=== PATIENT | male | born 1970 | race African-American/Black ===

== ENCOUNTER 2018-04-03 18:29 | Emergency (ER) | payer MEDICAID, OTHER ==
[2018-04-03 19:57] VITALS: BP 138/92
== END 2018-04-03 19:55 | disposition left against medical advice (07) ==
LOC: ED 18:29
DX: M25.512 Pain in left shoulder (principal); R53.1 Weakness; Z53.21 Procedure and treatment not carried out due to patient leaving prior to being seen by health care provider
CPT/HCPCS: 93005; 99281

== ENCOUNTER 2018-09-21 23:22 | Emergency (ER) | payer MEDICAID, OTHER ==
[2018-09-22] MEDS ORDERED: NS 0.9% 1000 ML* 1,000 ML IV ONE (01:02)
[2018-09-22 01:47] LABS: ABS Basophils 0.1 10^3/ul (0-0.2); ABS Eosinophils 0.1 10^3/ul (0-0.6); ABS Lymphocytes 1.9 10^3/ul (1.0-4.8); ABS Monocytes 0.4 10^3/ul (0-0.8); ABS Neutrophils 4.8 10^3/ul (1.5-7.7); ABS Nucleated RBC 0 10^3/ul; Eosinophil % 1.1 %; Hematocrit 43 % (42-52); Hemoglobin 14.5 g/dl (14.0-18.0); Lymphocyte % 25.8 %; Mean Corpuscular HGB Conc 33 g/dl (31-36); Mean Corpuscular Hemoglobin 26 pg (27-31); Mean Corpuscular Volume 78 fL (80-94); Mean Platelet Volume 9.5 fL (7.4-10.4); Nucleated Red Blood Cells % 0.1; Platelet Count 217 10^3/ul (150-450); Red Blood Count 5.53 10^6/ul (4.00-5.40); Red Cell Distribution Width 14 % (10.5-15); White Blood Count 7.2 10^3/ul (3.5-10.8)
[2018-09-22 02:05] LABS: Albumin 4.5 g/dL (3.2-5.2); Albumin/Globulin Ratio 1.6 (1-3); BUN/Creatinine Ratio 13.1 (8-20); C Reactive Protein 6.44 mg/L (<8.01); Calcium 9.1 mg/dL (8.6-10.3); Globulin 2.8 g/dL (2-4); Potassium 3.5 mmol/L (3.5-5.0); Total Bilirubin 0.6 mg/dL (0.2-1.0); Total Protein 7.3 g/dL (6.4-8.9)
[2018-09-22 02:49] LABS: TSH (Thyroid Stimulating Horm) 1.41 mcIU/mL (0.34-5.60)
--- NOTE | 2018-09-22 03:15 | ED ---
Hypertension - HPI Summary HPI Summary: Patient complains of elevated blood pressure up to 165/105, not feeling well starting this evening while watching TV. Associated symptoms are shortness of breath, nausea, abdominal churning, left side neck pain. All symptoms have resolved by time of exam, but patient states he is concerned. Patient has history of hypertension, with history of noncompliance. States history of recent stress test and echo one week ago with gathering machine setter in [facility]. States stress test was negative, echo was unusual by gathering machine setter for following up with scheduled CT. Patient states history of multiple evaluations for chest pain over the years. Cardiac catheter in 2004 was negative. Denies fever, cough, sore throat, active CP, active SOB, active N/V/D, abdominal pain, change in urine, change in BM. Medical history is HTN, chronic back pain, HDL. Negative smoker, denies EtOH, recreational drug use. - History of Current Complaint Chief Complaint: EDHypertension Stated Complaint: HIGH BLOOD PRESSURE Time Seen by Provider: 09/22/18 00:45 Hx Obtained From: Patient Onset/Duration: Started Hours Ago Timing: Intermittent Aggravating Factor(s): Nothing Alleviating Factor(s): Nothing Associated Signs & Symptoms: Chest Pain, SOB - Risk Factors Cardiac Risk Factors: Hypertension - Allergies/Home Medications Allergies/Adverse Reactions: Allergies Allergy/AdvReac Type Severity Reaction Status Date / Time No Known Allergies Allergy Verified 09/22/18 02:01 PMH/Surg Hx/FS Hx/Imm Hx Endocrine/Hematology History: Denies: Hx Anticoagulant Therapy Cardiovascular History: Reports: Other Cardiovascular Problems/Disorders - PALPATATIONS Denies: Hx Auto Implanted Cardiovert Defib History: Denies: Hx Dialysis Sensory History: Denies: Hx Eye Prosthesis EENT History: Denies: Hx Deafness Neurological History: Denies: Hx Developmental Delay Psychiatric History: Denies: Hx Autism - Surgical History Surgery Procedure, Year, and Place: CARDIAC CATH, [place], [place] Infectious Disease History: No Infectious Disease History: Denies: Traveled Outside the [place] in Last 30 Days - Family History Known Family History: Positive: Unknown Negative: Cardiac Disease - Social History Alcohol Use: Rare Substance Use Type: Reports: None Hx Tobacco Use: No Smoking Status (MU): Never Smoked Tobacco Review of Systems Constitutional: Negative Eyes: Negative ENT: Negative Positive: Chest Pain Positive: Shortness Of Breath Gastrointestinal: Negative Genitourinary: Negative Musculoskeletal: Negative Skin: Negative Neurological: Negative Psychological: Normal All Other Systems Reviewed And Are Negative: Yes Physical Exam - Summary Physical Exam Summary: Physical exam unremarkable. Chest pain not reproducible. Neck pain reproducible. Triage Information Reviewed: Yes Vital Signs On Initial Exam: Initial Vitals Temp Pulse Resp BP Pulse Ox 97.6 F 75 20 155/104 97 09/21/18 23:24 09/21/18 23:24 09/21/18 23:24 09/21/18 23:24 09/21/18 23:24 Vital Signs Reviewed: Yes Appearance: Positive: Well-Appearing Skin: Positive: Warm Head/Face: Positive: Normal Head/Face Inspection Eyes: Positive: Normal ENT: Positive: Normal ENT inspection Neck: Positive: Supple Respiratory/Lung Sounds: Positive: Clear to Auscultation Cardiovascular: Positive: Normal Abdomen Description: Positive: Nontender Musculoskeletal: Positive: Normal Neurological: Positive: Normal Psychiatric: Positive: Normal AVPU Assessment: Alert - [place] Coma Scale Best Eye Response: 4 - Spontaneous Best Motor Response: 6 - Obeys Commands Best Verbal Response: 5 - Oriented Coma Scale Total: 15 Diagnostics - Vital Signs Vital Signs Temp Pulse Resp BP Pulse Ox 09/22/18 03:00 68 99 09/22/18 02:41 71 132/85 99 09/22/18 02:11 71 134/85 98 09/22/18 02:00 68 98 09/22/18 01:41 72 138/92 98 09/22/18 01:40 70 98 09/21/18 23:24 97.6 F 75 20 155/104 97 - Laboratory Lab Results: Lab Results 09/22/18 09/22/18 Range/Units 01:35 01:35 WBC 7.2 (3.5-10.8) 10^3/ul RBC 5.53 H (4.00-5.40) 10^6/ul Hgb 14.5 (14.0-18.0) g/dl Hct 43 (42-52) % MCV 78 L (80-94) fL MCH 26 L (27-31) pg MCHC 33 (31-36) g/dl RDW 14 (10.5-15) % Plt Count 217 (150-450) 10^3/ul MPV 9.5 (7.4-10.4) fL Neut % (Auto) 66.5 % Lymph % (Auto) 25.8 % [place] % (Auto) 5.5 % Eos % (Auto) 1.1 % Baso % (Auto) 1.1 % Absolute Neuts (auto) 4.8 (1.5-7.7) 10^3/ul Absolute Lymphs (auto) 1.9 (1.0-4.8) 10^3/ul Absolute Monos (auto) 0.4 (0-0.8) 10^3/ul Absolute Eos (auto) 0.1 (0-0.6) 10^3/ul Absolute Basos (auto) 0.1 (0-0.2) 10^3/ul Absolute Nucleated RBC 0 10^3/ul Nucleated RBC % 0.1 Sodium 139 (135-145) mmol/L Potassium 3.5 (3.5-5.0) mmol/L Chloride 106 (101-111) mmol/L Carbon Dioxide 26 (22-32) mmol/L Anion Gap 7 (2-11) mmol/L BUN 13 (6-24) mg/dL Creatinine 0.99 (0.67-1.17) mg/dL Est GFR ( Amer) 98.0 (>60) Est GFR (Non-Af Amer) 81.0 (>60) BUN/Creatinine Ratio 13.1 (8-20) Glucose 127 H (70-100) mg/dL Calcium 9.1 (8.6-10.3) mg/dL Total Bilirubin 0.60 (0.2-1.0) mg/dL AST 24 (13-39) U/L ALT 41 (7-52) U/L Alkaline Phosphatase 55 (34-104) U/L Troponin I 0.00 (<0.04) ng/mL C-Reactive Protein 6.44 (<8.01) mg/L Total Protein 7.3 (6.4-8.9) g/dL Albumin 4.5 (3.2-5.2) g/dL Globulin 2.8 (2-4) g/dL Albumin/Globulin Ratio 1.6 (1-3) TSH 1.41 (0.34-5.60) mcIU/mL Result Diagrams: 09/22/18 01:35 09/22/18 01:35 Lab Statement: Any lab studies that have been ordered have been reviewed, and results considered in the medical decision making process. Hypertension Course/Dx - Course Course Of Treatment: Patient complains of elevated blood pressure up to 165/105 , not feeling well starting this evening while watching TV. Associated symptoms are shortness of breath, nausea, abdominal churning, left side neck pain. All symptoms have resolved by time of exam, but patient states he is concerned. Patient has history of hypertension, with history of noncompliance. States history of recent stress test and echo one week ago with gathering machine setter in [facility]. States stress test was negative, echo was unusual by gathering machine setter for following up with scheduled CT. Patient states history of multiple evaluations for chest pain over the years. Cardiac catheter in 2004 was negative. Denies fever, cough, sore throat, active CP, active SOB, active N/V/D, abdominal pain, change in urine, change in BM. Medical history is HTN, chronic back pain, HDL. Negative smoker, denies EtOH, recreational drug use. Physical exam unremarkable. Vital signs within normal limits. Labs unremarkable. EKG sinus rhythm with very mild T wave inversion similar to prior EKG. Chest x-ray unremarkable. Follow-up with gathering machine setter in the city for further evaluation. Patient understands and approves of the plan - Diagnoses Provider Diagnoses: Atypical chest pain, SOB (shortness of breath) Discharge - Sign-Out/Discharge Documenting (check all that apply): Patient Departure - Discharge Plan Condition: Stable Disposition: HOME Patient Education Materials: Chest Pain (ED) Referrals: No Primary Care Phys,NOPCP [Primary Care Provider] - Additional Instructions: Follow-up with primary care and your gathering machine setter. Return to the ED for any new or worsening symptoms - Billing Disposition and Condition Condition: STABLE Disposition: Home
[2018-09-22 03:36] VITALS: BP 126/85
== END 2018-09-22 03:35 | disposition home or self-care (01) ==
LOC: ED 23:22
DX: R07.89 Other chest pain (principal); R00.2 Palpitations; R06.02 Shortness of breath
CPT/HCPCS: 36415; 71046; 80053; 84443; 84484; 85025; 86140; 93005; 96360; 99283

== ENCOUNTER 2019-04-11 15:01 | Observation (INO) | payer OTHER ==
[2019-04-11] MEDS ORDERED: Nitroglycerin TAB 0.4 MG* 0.4 MG TAB SL ONE (15:27)
[2019-04-11] MEDS ORDERED: Aspirin 81 mg CHEW TAB* 81 MG TAB.CHEW PO ONE (15:27)
--- NOTE | 2019-04-11 15:27 | ED ---
HPI Chest Pain - HPI Summary HPI Summary: 48 year old M presenting to [facility] with a chief complaint of chest discomfort since 3 days ago, worse since today while driving. The patient rates the pain 10 /10 in severity. Symptoms aggravated by talking. Symptoms alleviated by nothing. Patient reports weakness. Patient denies head pain, nausea, vomiting, diaphoresis. Patient has hx HTN for which he is prescribed 5 mg Norvasc. Patient states he has been taking 2.5 mg because he does not like the way he feels when he takes 5 mg and his physician "won't go less than that." In the past 3 days, patient has not been feeling well. Patient occasionally takes aspirin 81 mg. Denies hx [place]. Reports heart catheterization without stents in 2004. Patient states he has been having intermittent heart palpitations since 2003. Patient has blood pressure cuff at home. - History of Current Complaint Chief Complaint: EDChestPainROMI Time Seen by Provider: 04/11/19 15:20 Hx Obtained From: Patient Onset/Duration: Started Days Ago - 3, Still Present Timing: Constant Current Severity: Severe Pain Intensity: 10 Pain Scale Used: 0-10 Numeric Aggravating Factor(s): Other: - Talking Alleviating Factor(s): Nothing Associated Signs and Symptoms: Positive: Negative - head pain, nausea, vomiting , diaphoresis, Weakness - Allergy/Home Medications Allergies/Adverse Reactions: Allergies Allergy/AdvReac Type Severity Reaction Status Date / Time No Known Allergies Allergy Verified 04/11/19 15:15 Home Medications: Home Medications Aspirin EC TAB* [Ecotrin EC Low Dose 81 MG*] 81 mg PO DAILY 04/11/19 [History Confirmed 04/11/19] Atorvastatin* [Lipitor 10 MG*] 10 mg PO DAILY 04/11/19 [History Confirmed ] Dicyclomine CAP* [Bentyl CAP*] 20 mg PO TID 04/11/19 [History Confirmed 04/11/19 ] Gabapentin CAP(*) [Neurontin 400 mg CAP(*)] 800 mg PO DAILY 04/11/19 [History Confirmed 04/11/19] Losartan/Hydrochlorothiazide [Losartan-Hctz 100-12.5 mg Tab] 1 tab PO DAILY 04/22 [History Confirmed 04/11/19] Tamsulosin CAP* [Flomax CAP*] 0.4 mg PO DAILY 04/11/19 [History Confirmed ] oxyCODONE TAB* [Roxycodone TAB 5 mg*] 20 mg PO BID 04/11/19 [History Confirmed 04/11/19] traZODone TAB* [Desyrel TAB*] 100 mg PO BEDTIME 04/11/19 [History Confirmed 04/22] PMH/Surg Hx/FS Hx/Imm Hx Endocrine/Hematology History: Denies: Hx Anticoagulant Therapy Cardiovascular History: Reports: Hx Hypertension, Other Cardiovascular Problems/ Disorders - PALPATATIONS Denies: Hx Auto Implanted Cardiovert Defib History: Denies: Hx Dialysis Sensory History: Denies: Hx Eye Prosthesis, Hx Deafness Opthamlomology History: Denies: Hx Eye Prosthesis Neurological History: Denies: Hx Developmental Delay Psychiatric History: Denies: Hx Autism - Surgical History Surgery Procedure, Year, and Place: CARDIAC CATH, [place], [place] Infectious Disease History: No Infectious Disease History: Denies: Traveled Outside the in Last 30 Days - Family History Known Family History: Negative: Cardiac Disease - Social History Alcohol Use: Rare Hx Substance Use: No Substance Use Type: Reports: None Hx Tobacco Use: Yes Smoking Status (MU): Current Some Day Smoker Type: eCigarettes Review of Systems Negative: Skin Diaphoresis Positive: Other - chest discomfort Negative: Vomiting, Nausea Musculoskeletal: Negative - head pain Positive: Weakness All Other Systems Reviewed And Are Negative: Yes Physical Exam - Summary Physical Exam Summary: GENERAL: Patient is a well-developed and nourished M who is lying comfortable in the stretcher. Patient is not in any acute respiratory distress. HEAD AND FACE: Normocephalic EYES: PERRLA, EOMI x 2. EARS: Hearing grossly intact. MOUTH: Oropharynx within normal limits. NECK: Supple, trachea is midline, no adenopathy, no JVD, no carotid bruit. CHEST: Symmetric, no tenderness at palpation LUNGS: Clear to auscultation bilaterally. No wheezing or crackles. CVS: Tachycardic, regular rhythm, S1 and S2 present, no murmurs or gallops appreciated. ABDOMEN: Soft, non-tender. Bowel sounds are normal. No abnormal abdominal pulsations. EXTREMITIES: Full ROM in all major joints, no edema, no cyanosis or clubbing. NEURO: Alert and oriented x 3. No acute neurological deficits. Speech is normal and follows commands. SKIN: Dry and warm Vital Signs On Initial Exam: Initial Vitals Temp Pulse Resp BP Pulse Ox 97.6 F 110 21 153/95 100 04/11/19 15:07 04/11/19 15:07 04/11/19 15:07 04/11/19 15:07 04/11/19 15:07 Diagnostics - Vital Signs Vital Signs Temp Pulse Resp BP Pulse Ox 04/11/19 15:07 97.6 F 110 21 153/95 100 - Laboratory Result Diagrams: 04/11/19 15:54 04/12/19 09:33 Lab Statement: Any lab studies that have been ordered have been reviewed, and results considered in the medical decision making process. - Radiology CXR Radiology Interpretation Completed By: Radiologist Summary of Radiographic Findings: Lobulated right hemidiaphragm. No pneumonia is identified. ED physician has reviewed this report. - EKG 1503 Cardiac Rate: Tachycardia - 110 BPM EKG Rhythm: Sinus Rhythm Summary of EKG Findings: Sinus tachycardia 110 BPM, ST depressions seen in lateral leads which are new compared to previous done on 09/22/18, and prolonged QT. Chest Pain Course/Dx - Course Course Of Treatment: 48 year old M presenting to [facility] with a chief complaint of chest discomfort since 3 days ago, worse since today while driving. Patient reports weakness. Patient denies head pain, nausea, vomiting, diaphoresis. Patient has hx HTN. PE findings: tachycardic. CXR: Lobulated right hemidiaphragm. No pneumonia is identified. EKG shows sinus tachycardia 110 BPM , ST depressions seen in lateral leads which are new compared to previous done on 09/22/18, and prolonged QT. Labs show no significant abnormalities except for RBC 5.90, MCV 79, MCH 26, INR 1.10, lactic acid 2.3, anion gap 12, creatinine 1.26, glucose 111, total bilirubin 1.10, creatinine 1.26, glucose 111. Case discussed with hospitalist, Dr. Nova, who agrees to admit patient. I discussed results with patient. The patient agrees with this plan. - Diagnoses Provider Diagnoses: Chest pain - Provider Notifications Discussed Care Of Patient With: Ilene Nova Time Discussed With Above Provider: 16:44 Instructed by Provider To: Other - Dr. Nova, hospitalist, agrees to admit patient. Discharge - Sign-Out/Discharge Documenting (check all that apply): Patient Departure - Admit Patient Received Moderate/Deep Sedation with Procedure: No - Discharge Plan Condition: Good Disposition: ADMITTED TO [facility] - Billing Disposition and Condition Condition: GOOD Disposition: Admitted to [facility] - Attestation Statements Document Initiated by Scribe: Yes Documenting Scribe: Mellisa Sellers Provider For Whom Scribe is Documenting (Include Credential): Mariela Cornelius MD Scribe Attestation: Mellisa Cook, scribed for Mariela Cornelius MD on 04/13/19 at 0807. Scribe Documentation Reviewed: Yes Provider Attestation: The documentation as recorded by the Mellisa mcdonald accurately reflects the service I personally performed and the decisions made by Mariela matute MD Status of Scribe Document: Viewed
[2019-04-11 16:09] LABS: ABS Basophils 0.1 10^3/ul (0-0.2); ABS Eosinophils 0.1 10^3/ul (0-0.6); ABS Lymphocytes 1.7 10^3/ul (1.0-4.8); ABS Monocytes 0.3 10^3/ul (0-0.8); ABS Neutrophils 4.2 10^3/ul (1.5-7.7); Hematocrit 47 % (42-52); Hemoglobin 15.6 g/dL (14.0-18.0); Lymphocyte % 26.8 %; Mean Corpuscular HGB Conc 33 g/dL (31-36); Mean Corpuscular Hemoglobin 26 pg (27-31); Mean Corpuscular Volume 79 fL (80-94); Mean Platelet Volume 9.6 fL (7.4-10.4); Nucleated Red Blood Cells % 0.2; Platelet Count 199 10^3/uL (150-450); Red Cell Distribution Width 14 % (10-15); White Blood Count 6.3 10^3/uL (3.5-10.8)
[2019-04-11 16:24] LABS: Activated Partial Thrombo Time 35.3 seconds (26.0-38.0)
[2019-04-11 16:50] LABS: Albumin 4.8 g/dL (3.2-5.2); Calcium 9.8 mg/dL (8.6-10.3); Potassium 3.5 mmol/L (3.5-5.0); Total Bilirubin 1.1 mg/dL (0.2-1.0)
[2019-04-11 16:56] LABS: Albumin/Globulin Ratio 1.5 (1-3); BUN/Creatinine Ratio 11.9 (8-20); EGFR African American 73.9 (>60); EGFR Non-African American 61.1 (>60); Globulin 3.3 g/dL (2-4); Total Protein 8.1 g/dL (6.4-8.9)
[2019-04-11] MEDS ORDERED: Acetaminophen TAB* 325 MG PO PRN (17:39)
[2019-04-11 18:23] LABS: Urine Benzodiazepine Screen None Detected (None Detect); Urine Opiates Screen None Detected (None Detect)
--- NOTE | 2019-04-11 21:59 | HP ---
CC: Dr. Eli Lloyd, [facility]* HISTORY AND PHYSICAL: DATE OF ADMISSION: 04/11/19. PRIMARY CARE PROVIDER: Dr. Eli Lloyd, [facility]. ATTENDING PHYSICIAN: Dr. Ilene Nova* (dictated by Asif Lowe NP). CHIEF COMPLAINT: Chest pain. HISTORY OF PRESENT ILLNESS: Mr. Goncalves is a 48-year-old male with a past medical history significant for hypertension, palpitations, chronic pain, chronic nerve pain; who presented to the emergency department today, 04/11/19, after a sudden feeling of "feeling horrible" and feeling as if "I was going to ." The patient drove himself to the hospital. He reports that during this episode, he has some chest discomfort and rated it as 10/10. He reports the chest discomfort has resolved on its own and is now a 2/10. When discussing events leading up to this, he reports that he has had occasional chest discomfort for the past 3 days. These episodes last about 5 minutes. He reports the chest pressure/discomfort is "very light." He reports these episodes have not been aggravated by any activity. He denies aggravating symptoms. He denies alleviating symptoms. The patient reports he has had similar episodes and has been seen in multiple hospitals including [facility] last year where he had a stress test and echocardiogram. He does not remember the results of these. He also had a cardiac catheterization in 2004 and no stents. While in the emergency department, the patient had an EKG, which revealed slight ST depression in leads 4 and 5 and possibly 6. The patient had elevated lactic at 2.3 and the patient had an elevated creatinine of 1.26. Given the patient's symptoms and EKG changes, the hospitalists were asked to evaluate for admission. It should be noted the patient's initial troponin was 0.00. PAST MEDICAL HISTORY: 1. Hypertension. 2. Palpitations. 3. Chronic back pain. 4. Chronic nerve pain. PAST SURGICAL HISTORY: Cardiac cath in 2004, no stents. HOME MEDICATIONS: 1. Amlodipine 5 mg p.o. daily. 2. Lipitor 10 mg p.o. daily. 3. Oxycodone 20 mg p.o. b.i.d. p.r.n. 4. Bentyl 20 mg p.o. t.i.d. 5. Losartan/HCTZ 1 tab p.o. daily. 6. Tums 100 mg p.o. at bedtime. 7. Gabapentin 800 mg p.o. daily. 8. Amlodipine 1 mg p.o. daily. 9. Flomax 0.4 mg p.o. daily. 10. Aspirin 81 mg p.o. daily. ALLERGIES: No known drug allergies. FAMILY HISTORY: The patient reports mother is and had "heart issues" but unsure of exact type. The patient reports father young in a car accident. The patient reports that mom possibly had a history of CAD. The patient denies family history of diabetes or cancer. SOCIAL HISTORY: The patient denies smoking. The patient denies alcohol use. The patient reports he vapes marijuana, last use was last night. The patient does not work. The patient is not . The patient lives with his aunt. The patient sometimes uses a cane due to chronic pain. The patient lives here and in [facility]. REVIEW OF SYSTEMS: The patient reports chest discomfort has resolved. The patient denies palpitations, shortness of breath, nausea, vomiting, diaphoresis. A 14- point review of systems was completed and all pertinent positives and negatives are in the HPI. PHYSICAL EXAMINATION GENERAL: Mr. Goncalves is a 48-year-old male who is well developed, well nourished, lying in bed. Appears to be stated age. Appears to be in no acute distress. VITAL SIGNS: Temp 98.3, HR 71, RR 17, O2 saturation 97% on room air, BP 122/86. HEENT: EOMs intact. PERRLA. Oral mucosa is moist without lesions. Posterior pharynx is clear. NECK: Full range of motion. No lymphadenopathy. RESPIRATORY: Symmetrical chest expansion. No accessory muscle use. Lungs are clear to auscultation. No rhonchi, wheezes, or rubs. CV: Regular rate and rhythm. S1, S2 present. No murmurs, rubs, or gallops. No JVD. ABDOMEN: Soft, nontender. Bowel sounds normoactive. MUSCULOSKELETAL: Full range of motion. No pain or deformities. EXTREMITIES: Skin is warm and smooth bilaterally. No edema. No clubbing or cyanosis. Pedal pulses 2+ bilaterally. NEUROLOGIC: The patient is awake, alert and oriented x4. Cranial nerves are grossly intact. Moves all extremities. Muscle strength is 5/5. SKIN: Grossly intact without lesions. DIAGNOSTIC STUDIES/LAB DATA: WBC 6.3, hemoglobin 14.6, hematocrit 47, platelet 199,000. D-dimer less than 200. Sodium 140, potassium 3.7, chloride 105, carbon dioxide 24, BUN 15, creatinine 1.26, glucose 111, lactic 2.3, total bilirubin 1.10, troponin 0.00, BNP 12. ASSESSMENT AND PLAN: Mr. Goncalves is a 48-year-old male with a past medical history significant for hypertension, palpitations, chronic pain, chronic nerve pain; who presents to the emergency department today with complaints of chest discomfort and overall ill feeling. The patient will be admitted OBV. 1. Chest discomfort: Given patient's history, presentation, and LINDSEY score of 2, he will be admitted to the hospital. He will be placed on tele. He will have an echo. He will have a stress test in the morning. He will have serial troponins with accompanying EKGs. If troponin trends up and/or symptoms return, cardiology will be contact immediately for consultation. We will continue with aspirin. We will request records from [facility] regarding his past stress test. I ordered a urine tox screen, TSH, hemoglobin A1c, lipid panel. 2. Hypertension: The patient reports that he takes 5 mg of amlodipine, but recently cut it in half and then again in 09/07. He is titrating this on his own. We will continue patient's dose of 5 mg as his blood pressure slightly elevated. We will monitor his vital signs routinely. 3. Palpitations: The patient denies palpitations at this time. We will continue patient on tele. 4. Chronic pain: We will continue patient's home medications. 5. Chronic nerve pain: We will continue patient's gabapentin. 6. FEN. The patient will be provided with a heart-healthy, no-caffeine diet. He will be n.p.o. after midnight. 7. Code status: The patient is full code. 8. DVT prophylaxis: Based on the DVT risk assessment, the patient is a moderate risk. I will order SCDs and ambulation. TIME SPENT: Approximately 65 minutes were spent on this admission, greater than half the time was spent with the patient and family obtaining my history, performing physical exam, and reviewing my plan of care. This case was reviewed with my attending, Dr. Nova who is in agreement with my plan of care. Reviewed by ASIF LOWE, MAGY 04/17/19 @ 1219 [id number]/[facility] #: [id number] MTDD
[2019-04-12 10:04] LABS: Albumin 4.5 g/dL (3.2-5.2); Albumin/Globulin Ratio 1.5 (1-3); BUN/Creatinine Ratio 12.8 (8-20); Calcium 9.3 mg/dL (8.6-10.3); EGFR African American 87.4 (>60); EGFR Non-African American 72.2 (>60); Globulin 3.1 g/dL (2-4); HDL Cholesterol 49.1 mg/dL; Potassium 3.9 mmol/L (3.5-5.0); Total Bilirubin 0.9 mg/dL (0.2-1.0); Total Protein 7.6 g/dL (6.4-8.9)
[2019-04-12] MEDS ORDERED: oxyCODONE TAB* 5 MG TAB PO PRN (10:45)
[2019-04-12] MEDS ORDERED: Gabapentin CAP(*) 400 MG PO PRN (10:45)
[2019-04-12] MEDS ORDERED: traZODone TAB* 100 MG PO PRN (10:45)
[2019-04-12] MEDS ORDERED: Dicyclomine CAP* 10 MG PO PRN (10:45)
[2019-04-12 10:49] LABS: TSH (Thyroid Stimulating Horm) 1.55 mcIU/mL (0.34-5.60)
[2019-04-12] MEDS ORDERED: Losartan TAB* 25 MG PO SCH (11:00)
[2019-04-12] MEDS ORDERED: Atorvastatin* 10 MG TAB PO SCH (11:00)
[2019-04-12] MEDS ORDERED: amLODIPine TAB* 5 MG PO SCH (11:00)
[2019-04-12] MEDS ORDERED: Tamsulosin CAP* 0.4 MG PO SCH (11:00)
[2019-04-12] MEDS ORDERED: Aspirin EC TAB* 81 MG TAB.EC PO SCH (11:00)
[2019-04-12] MEDS ORDERED: Hydrochlorothiazide TAB* 25 MG PO SCH (11:00)
[2019-04-12 13:36] VITALS: BP 130/87
--- NOTE | 2019-04-12 15:49 | ECHO ---
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 History: Palpitations. Risk factors: Hypertension. Conclusions Summary: - Left ventricle: There is mild concentric hypertrophy. Systolic function is normal. The estimated ejection fraction is 60-65%. - Right ventricle: The cavity size is mildly dilated. Wall thickness is mildly increased. - Right atrium: The atrium is mildly dilated. - Mitral valve: There is trace to mild regurgitation. Study data: Transthoracic echocardiogram. Procedure: Transthoracic echocardiography was performed. Image quality was good. Complete 2D, spectral Doppler, and color flow Doppler. Location: Bedside. Patient status: Inpatient. Patient room number: 445-2. No prior study is available for comparison. Rhythm: Normal sinus rhythm. Findings Left ventricle: The cavity size is normal. There is mild concentric hypertrophy. Systolic function is normal. The estimated ejection fraction is 60-65%. Wall motion is normal; there are no regional wall motion abnormalities. Doppler parameters are consistent with abnormal left ventricular relaxation (grade 1 diastolic dysfunction). Right ventricle: The cavity size is mildly dilated. Wall thickness is mildly increased. Systolic function is low normal. Left atrium: The atrium is normal in size. Right atrium: The atrium is mildly dilated. Mitral valve: The leaflets are mildly thickened. There is no evidence of stenosis. There is trace to mild regurgitation. Aortic valve: The valve is trileaflet. The leaflets are normal thickness. There is no evidence of stenosis. There is trace regurgitation. Tricuspid valve: The leaflets are normal thickness. There is no evidence of stenosis. There is physiologic regurgitation. Pulmonic valve: The leaflets are normal thickness. There is no evidence of stenosis. There is trace regurgitation. Aorta: Ascending aorta: The ascending aorta is appears normal. The aortic root appears normal. The aortic arch appears normal. Pericardium: A prominent pericardial fat pad is present. There is no significant pericardial effusion. Pulmonary arteries: Poorly visualized. Systolic pressure can not be accurately estimated. Systemic veins: Inferior vena cava: The vessel is normal in size. There is (>= 50%) respiratory change in the IVC dimension. Measurements Left ventricle Value Ref Right atrium continued Value Ref MARYAM, LAX (L) 4.1 cm 4.2 - 5.8 SI dim, ES, A4C 4.4 cm 3.4 - 5.3 ESD, LAX 2.7 cm 2.5 - 4.0 Estimated RAP 3 mm Hg --------- FS, LAX 35 % 25 - 43 PW, ED, LAX (H) 1.2 cm 0.6 - 1.0 Aortic valve Value Ref FS 35 % 25 - 43 Shereen diam, ED 2.1 cm --------- PW, ED (H) 1.2 cm 0.6 - 1.0 Peak v, S 1.46 m/sec --------- E', lat shereen, TDI (L) 9.8 cm/sec >=10.0 VTI, S 25.9 cm -- ------- E/e', lat shereen, 8 Mean grad, S 4.0 mm Hg ----- ---- TDI Peak grad, S 9.0 mm Hg --------- E', med shereen, TDI 7.3 cm/sec >=7.0 LVOT/AV, VTI ratio 0.89 -- ------- E/e', med shereen, 11 TDI Mitral valve Value Ref E', avg, TDI 8.6 cm/sec Peak E 0.81 m/sec ----- ---- E/e', avg, TDI 9 <=14 Peak A 0.68 m/sec -- ------- Decel time 176 ms --------- LVOT Value Ref Peak grad, D 2.6 mm Hg --------- Peak timo, S 1.03 m/sec Peak E/A ratio 1.2 --------- VTI, S 23.0 cm Mean grad, S 2 mm Hg Pulmonic valve Value Ref Peak v, S 1.14 m/sec --------- Ventricular septum Value Ref Peak grad, S 5.0 mm Hg --------- IVS, ED (H) 1.2 cm 0.6 - 1.0 Aortic root Value Ref Right ventricle Value Ref Root diam 3.6 cm <4.2 AW thickness, ED (H) 0.9 cm 0.1 - 0.5 MARYAM, LAX 2.9 cm Ascending aorta Value Ref MARYAM minor ax, (H) 4.6 cm 1.9 - 3.5 AAo AP diam, S 3.1 cm --------- A4C mid Aortic arch Value Ref Left atrium Value Ref Arch diam 2.0 cm --------- AP dim, ES 3.60 cm 3.00 - 4.00 Decending aorta Value Ref ML dim, A4C 4.1 cm Nicole peak timo 0.72 m/sec --------- SI dim, A4C 5.1 cm Vol/bsa, ES, 1-p 27 ml/m^2 12 - 37 Inferior vena cava Value Ref A4C Diam 1.6 cm --------- Vol/bsa, ES, A/L 28 ml/m^2 16 - 34 Right atrium Value Ref SI dim, ES 4.4 cm 3.4 - 5.3 ML dim, ES, A4C (H) 4.5 cm 2.6 - 4.4 Legend: (L) and (H) gregg values outside specified reference range. Prepared and electronically signed by Tim Perrin MD 04/12/2019 15:48
--- NOTE | 2019-04-12 23:08 | DS ---
CC: Dr. Shima Dupree * DISCHARGE SUMMARY: DATE OF ADMISSION: 04/11/19 DATE OF DISCHARGE: 04/12/19 PRIMARY CARE PROVIDER: Dr. Shima Dupree at [facility]. ATTENDING PHYSICIAN: Dr. Gregorio * (dictated by Roxy Lowe NP.) PRIMARY DIAGNOSIS: Chest pain. SECONDARY DIAGNOSES: 1. Hypertension. 2. Palpitations. 3. Chronic back pain. 4. Chronic nerve pain. STUDIES WHILE IN THE HOSPITAL: 1. EKG: Obtained 04/11/19 at 1503, sinus tachycardia, nonspecific T-wave abnormalities in V4, V5, and V6, which are slight T-wave depressions. 2. Chest x-ray: Impression: Lobulated right hemidiaphragm with no pneumonias identified. 3. Transthoracic echo: Impression: Left ventricle: There is mild concentric hypertrophy. Systolic function is normal. Estimated ejection fraction is 60% to 65%. Right ventricle: The right ventricle is mildly dilated. Wall thickness is mildly increased. Right atrium: The atrium is mildly dilated. Mitral valve: There is trace to mild regurgitation. 4. EKG: Obtained 04/11/19 at 1805, sinus rhythm, nonspecific T-wave abnormalities. Since previous record of 12-lead 04/11/[address] depression. 5. EKG: Obtained 04/11/19 at 2110, sinus rhythm. Nonspecific T abnormalities. No changes since 1805. 6. Nuclear medicine scan: Low risk. DISCHARGE HOME MEDICATIONS: Continued home medications: 1. Amlodipine 2.5 mg p.o. daily. 2. Lipitor 10 mg p.o. daily. 3. Oxycodone 20 mg p.o. b.i.d. p.r.n. 4. Bentyl 20 mg p.o. t.i.d. 5. Losartan/HCTZ 1 tab p.o. daily. 6. Trazodone 100 mg p.o. at bedtime. 7. Gabapentin 800 mg p.o. daily p.r.n. 8. Flomax 0.4 mg p.o. daily. 9. Aspirin 81 mg p.o. daily. New home medications: No new home medications. HISTORY OF PRESENT ILLNESS/HOSPITAL COURSE: Mr. Goncalves is a 48-year-old male with past medical history significant for hypertension, palpitations, back pain , nerve pain; who presented to the emergency department on 04/11/19 with complaints of chest discomfort and "feeling horrible." Please see history and physical dictated by myself for complete summary of events leading up to hospitalization, but in short, while in the emergency room, the patient's chest discomfort did resolve with no intervention but given slight ST depression in leads 4, 5, possibly 6, slightly elevated lactic at 2.3, and slightly elevated creatinine at 1.26. Hospitalists were asked to evaluate for admission. On assessment in the emergency department, the patient reports he has been in the ER multiple times for chest pain and palpitations. He reports he had a cardiac cath in 2014 with no stents. He reports he had a stress test and echocardiogram at [place] in 2018 with unremarkable findings. The patient' s LINDSEY score is 2. Given this history and patient's presentation, he was admitted to the hospital on telemetry for further evaluation. While on telemetry, the patient remained in sinus rhythm. The patient remained chest pain free. The patient had a repeat troponin all of which were negative at 0.01. The patient had a nuclear stress test, which revealed low risk. The patient had an EKG and stress test, which showed no EKG changes. The patient had routine vital signs, which remained stable. The patient had repeat EKGs as mentioned above. The patient had an echo without acute concerning findings. Given the patient has had a negative cardiac workup and has been symptom free since admission, he is stable for discharge home. REVIEW OF SYSTEMS: The patient denies chest pain/pressure, palpitations, shortness of breath, dizziness, diaphoresis, nausea, vomiting. A 14-point review of systems was completed and all were negative. PHYSICAL EXAMINATION: Vital signs: Temp 98.4, HR 64, RR 18, O2 saturation 97% on room air, BP 130/ 87. General: Mr. Goncalves is sitting in the bed. Appears to be in no acute distress. Appears stated age. HEENT: EOMs intact. PERRLA. Oral mucosa is moist without lesion. Posterior pharynx is clear. Neck: Supple. No lymphadenopathy. Cardiac: S1, S2 present. No murmurs, rubs, or gallops. Regular rate and rhythm. Respiratory: Lungs are clear to auscultation. Good aeration. No wheezes, rhonchi, or rales. No accessory muscle use. Abdomen: Soft, nontender. Bowel sounds normoactive. Extremities: No edema. No clubbing or cyanosis. Pedal pulses are +2 bilaterally. Musculoskeletal: No pain or deformities. Skin: Grossly intact. Neuro: Neuro exam is grossly intact. No focal deficits or weakness. LABORATORY DATA: WBC 6.3, hemoglobin 15.6, hematocrit 47, platelet 199. D- dimer less than 200. Sodium 139, potassium 3.9, chloride 105, carbon dioxide 25 , BUN 14, creatinine 1.09, glucose 108. Hemoglobin A1c 5.6. Triglycerides 46, cholesterol 185, LDL 127, HDL 49.1, TSH 1.55. DISCHARGE PLAN/FOLLOWUP: 1. Chest pain: As mentioned above, the patient has LINDSEY risk score of 2, therefore he was admitted to the hospital, underwent cardiac evaluation including an echo, repeat troponins, repeat EKGs, nuclear stress test. The patient's cardiac workup has been unremarkable. The patient has been chest pain free. The patient's vital signs are stable. The patient will be discharged home. The patient should continue his home medications of amlodipine , Lipitor, losartan/HCTZ. 2. Hypertension: Inpatient med records reports he takes 5 mg of amlodipine but he reports that he was actually prescribed 2.5 mg daily and recently he has been cutting the 2.5 in half as he does not like the way it makes him feel. He reports he has been slowly titrating himself off. I have encouraged the patient to continue his blood pressure medication until he can followup with Dr. Shima Dpuree at [facility] and be monitored to change medications or discontinue if they decide as appropriate. The patient states understanding. The patient also reports that he has not been taking his losartan/HCTZ recently as he read a report that it had been recalled. The patient's blood pressure has been normotensive. I have encouraged the patient to continue his medications at least the [facility] until he follows up. 3. Palpitations: The patient denies palpitations. He is not on any rate controlling palpitation agents. The patient should follow up with [facility]. 4. Chronic hip pain: The patient reports he has oxycodone and gabapentin at home but does not take these often. The patient can continue these medications as needed. 5. Hyperlipidemia: The patient reports he is not always compliant with his statin as he has read articles about statins and their side effects. I have encouraged the patient to continue the statin until he can discuss this further with his primary care provider. 6. Chronic nerve pain: The patient takes gabapentin as needed. It should also be mentioned that the patient has medical marijuana as needed. 7. The patient should follow up with Dr. Shima Dupree at [facility] in 1 to 2 weeks. 8. Education: The patient was educated on signs and symptoms of new or worsening conditions and when to return to the emergency department. The patient stated understanding. TIME SPENT: Approximately 35 minutes was spent on this discharge, greater than half that time was spent [id number] with the patient discussing discharge plans and instructions. This plan was discussed with my attending, Dr. Gregorio, who is in agreement with my plan of care. Reviewed by ROXY LOWE NP 04/17/19 @ [id number] [id number]/CPS #: [id number] MTDD
== END 2019-04-12 18:31 | disposition home or self-care (01) ==
LOC: ED 15:01 → MEDTELE 17:39
PROVIDERS: ADMIT Internal Medicine; ATTEND Internal Medicine
DX: R07.9 Chest pain, unspecified (principal); I10 Essential (primary) hypertension; R00.2 Palpitations; G89.29 Other chronic pain; M54.9 Dorsalgia, unspecified; M79.2 Neuralgia and neuritis, unspecified; Z79.899 Other long term (current) drug therapy; E78.5 Hyperlipidemia, unspecified; Z79.82 Long term (current) use of aspirin; R94.31 Abnormal electrocardiogram [ECG] [EKG]
CPT/HCPCS: 36415; 71045; 78452; 80053; 80061; 80307; 83036; 83605; 83880; 84443; 84484; 85025; 85379; 85610; 85730; 93005; 93017; 93306; 99284; A9270-GY; A9502; G0378